=== PATIENT | male | born 1935 | race Caucasian/White ===

== ENCOUNTER 2018-02-20 02:37 | Emergency (ER) | payer MEDICARE ==
[2018-02-20] MEDS ORDERED: Ondansetron 4 MG/2 ML SDV IVPUSH ONE (03:29)
[2018-02-20] MEDS ORDERED: Morphine 4 MG/ML Syringe IVPUSH ONE (03:29)
[2018-02-20] MEDS ORDERED: Sodium Chloride 0.9% 1,000 ML IV SCH (03:30)
[2018-02-20 04:07] LABS: CHLORIDE,CL 101 mmol/L (98-107); SODIUM,NA 136 mmol/L (136-148)
[2018-02-20] MEDS ORDERED: Sodium Chloride 0.9% with KCl 1,000 ML IV SCH (04:30)
[2018-02-20] MEDS ORDERED: Metoclopramide 10 MG/2 ML SDV IV ONE (05:42)
--- NOTE | 2018-02-20 05:47 | EDM.PDOC ---
ED HPI GENERAL MEDICAL PROBLEM - General Chief Complaint: Abdominal Pain Stated Complaint: STOMACH PAINS Time Seen by Provider: 02/20/18 05:44 Source of Information: Reports: Patient - History of Present Illness INITIAL COMMENTS - FREE TEXT/NARRATIVE: HISTORY AND PHYSICAL: History of present illness: [Patient presents with abdominal pain 5 out of 10 diffuse nonfocal, he does have a tender ventral hernia which is been present for 25 years, is not readily reducible on exam abdomen is protuberant no fever nausea vomiting chills sweats no chest pain shortness breath headache dizziness or palpitation last bowel movement 3 days prior no urine symptoms ] Review of systems: As per history of present illness and below otherwise all systems reviewed and negative. Past medical history: As per history of present illness and as reviewed below otherwise noncontributory. Surgical history: As per history of present illness and as reviewed below otherwise noncontributory. Social history: No reported history of drug or alcohol abuse. Family history: As per history of present illness and as reviewed below otherwise noncontributory. Physical exam: HEENT: Atraumatic, normocephalic, pupils reactive, negative for conjunctival pallor or scleral icterus, mucous membranes moist, throat clear, neck supple, nontender, trachea midline. Lungs: Clear to auscultation, breath sounds equal bilaterally, chest nontender. Heart: S1S2, regular, negative for clicks, rubs, or JVD. Abdomen: Soft, protuberant multifocal tenderness. Negative for masses or hepatosplenomegaly. Negative for costovertebral tenderness. Pelvis: Stable nontender. Genitourinary: Deferred. Rectal: Deferred. Extremities: Atraumatic, negative for cords or calf pain. Neurovascular unremarkable. Neuro: Awake, alert, oriented. Cranial nerves II through XII unremarkable. Cerebellum unremarkable. Motor and sensory unremarkable throughout. Exam nonfocal. Diagnostics: [CBC CMP UA EKG Chest [address] abdomen pelvis with contrast ] Therapeutics: [Normal saline 1 25 mL per hour 40 mEq of potassium seeing 2 mg IV Zofran 8 mg IV Reglan 5 mg IV General surgery consult to Dr. Vasquez , she will be in to evaluate and disposition shortly Impression: [ abdominal pain, ventral hernia Rule out incarceration Hypokalemia] Definitive disposition and diagnosis as appropriate pending reevaluation and review of above. Bilateral Lower Pain Score (Numeric/FACES): 8 - Related Data Allergies Allergy/AdvReac Type Severity Reaction Status Date / Time Penicillins Allergy Rash Verified 02/20/18 03:04 Home Meds: Home Meds Allopurinol [Zyloprim] 100 mg PO DAILY 02/20/18 [History] Aspirin 81 mg PO DAILY 02/20/18 [History] Losartan [Cozaar] 50 mg PO DAILY 02/20/18 [History] Metoprolol Succinate [Toprol XL 50mg] 50 mg PO DAILY 02/20/18 [History] amLODIPine [Norvasc] 5 mg PO DAILY 02/20/18 [History] Past Medical History HEENT History: Reports: Hard of Hearing Cardiovascular History: Reports: Hypertension Respiratory History: Reports: None Gastrointestinal History: Reports: Chronic Constipation, Hemorrhoids Genitourinary History: Reports: None Musculoskeletal History: Reports: Gout Neurological History: Reports: None Psychiatric History: Reports: None Endocrine/Metabolic History: Reports: None Hematologic History: Reports: None Immunologic History: Reports: None Oncologic (Cancer) History: Reports: None Dermatologic History: Reports: None - Infectious Disease History Infectious Disease History: Reports: None - Past Surgical History Head Surgeries/Procedures: Reports: None HEENT Surgical History: Reports: Tonsillectomy GI Surgical History: Reports: Hernia, Abdominal Endocrine Surgical History: Reports: None Neurological Surgical History: Reports: None Oncologic Surgical History: Reports: None Social & Family History - Family History Family Medical History: Noncontributory - Tobacco Use Smoking Status *Q: Never Smoker Second Hand Smoke Exposure: No - Caffeine Use Caffeine Use: Reports: Coffee - Recreational Drug Use Recreational Drug Use: No ED ROS GENERAL - Review of Systems Review Of Systems: ROS reveals no pertinent complaints other than HPI. ED EXAM, GENERAL - Physical Exam Exam: See Below Course - Vital Signs Last Recorded V/S: Last Vital Signs Temp 98.9 F 02/20/18 06:31 Pulse 102 H 02/20/18 07:10 Resp 16 02/20/18 07:10 BP 128/74 02/20/18 07:10 Pulse Ox 95 02/20/18 07:10 - Orders/Labs/Meds Orders: Active Orders 24 hr Category Date Time Status EKG Documentation Completion [RC] STAT Care 02/20/18 02:54 Active Abdomen Pelvis w Cont [CT] Stat Exams 02/20/18 03:24 Taken Abdomen w Cont [CT] Stat Exams 02/20/18 02:54 Stop Req Chest 1V Frontal [CR] Stat Exams 02/20/18 02:54 Taken UA W/MICROSCOPIC [URIN] Stat Lab 02/20/18 03:13 Ordered Sodium Chloride 0.9% [Normal Saline] 1,000 ml Med 02/20/18 03:30 Active IV STAT Sodium Chloride 0.9% with KCl [Normal Saline with 40 Med 02/20/18 04:30 Active mEq KCl] 1,000 ml IV ASDIRECTED Medication Orders Sodium Chloride (Normal Saline) 1,000 mls @ 125 mls/hr IV STAT MYLA Last Admin: 02/20/18 03:33 Dose: 125 mls/hr Potassium Chloride/Sodium Chloride (Normal Saline With 40 Meq Kcl) 1,000 mls @ 250 mls/hr IV ASDIRECTED MYLA Last Admin: 02/20/18 04:47 Dose: 250 mls/hr Labs: Laboratory Tests 02/20/18 02/20/18 02/20/18 Range/Units 03:13 03:13 03:13 WBC 12.07 H (4.0-11.0) K/uL RBC 5.13 (4.50-5.90) M/uL Hgb 17.7 H (13.0-17.0) g/dL Hct 48.5 (38.0-50.0) % MCV 94.5 (80.0-98.0) fL MCH 34.5 H (27.0-32.0) pg MCHC 36.5 (31.0-37.0) g/dL RDW Std Deviation 45.8 (28.0-62.0) fl RDW Coeff of Stacie 13 (11.0-15.0) % Plt Count 190 (150-400) K/uL MPV 9.80 (7.40-12.00) fL Neut % (Auto) 78.6 (48.0-80.0) % Lymph % (Auto) 11.1 L (16.0-40.0) % [place] % (Auto) 9.9 (0.0-15.0) % Eos % (Auto) 0.2 (0.0-7.0) % Baso % (Auto) 0.2 (0.0-1.5) % Neut # (Auto) 9.5 H (1.4-5.7) K/uL Lymph # (Auto) 1.3 (0.6-2.4) K/uL [place] # (Auto) 1.2 H (0.0-0.8) K/uL Eos # (Auto) 0.0 (0.0-0.7) K/uL Baso # (Auto) 0.0 (0.0-0.1) K/uL Nucleated RBC % 0.0 /100WBC Nucleated RBCs # 0 K/uL Sodium 136 (136-148) mmol/L Potassium 2.9 L (3.5-5.1) mmol/L Chloride 101 (98-107) mmol/L Carbon Dioxide 26.0 (21.0-32.0) mmol/L BUN 14 (7.0-18.0) mg/dL Creatinine 1.1 (0.8-1.3) mg/dL Est Cr Clr Drug Dosing 49.24 mL/min Estimated GFR (MDRD) > 60.0 ml/min Glucose 152 H (74-106) mg/dL Calcium 9.8 (8.5-10.1) mg/dL Total Bilirubin 1.3 H (0.2-1.0) mg/dL AST 14 L (15-37) IU/L ALT 12 L (14-63) IU/L Alkaline Phosphatase 91 (46-116) U/L Troponin I < 0.050 (0.000-0.056) ng/mL Total Protein 7.9 (6.4-8.2) g/dL Albumin 3.8 (3.4-5.0) g/dL Globulin 4.1 H (2.0-3.5) g/dL Albumin/Globulin Ratio 0.9 L (1.3-2.8) Lipase 93 (73-393) U/L Urine Color YELLOW Urine Appearance CLEAR Urine pH 5.5 (5.0-8.0) Ur Specific [place] 1.020 (1.001-1.035) Urine Protein TRACE (NEGATIVE) mg/dL Urine Glucose (UA) NEGATIVE (NEGATIVE) mg/dL Urine Ketones 15 H (NEGATIVE) mg/dL Urine Occult Blood NEGATIVE (NEGATIVE) Urine Nitrite NEGATIVE (NEGATIVE) Urine Bilirubin SMALL H (NEGATIVE) Urine Urobilinogen 0.2 (<2.0) EU/dL Ur Leukocyte Esterase NEGATIVE (NEGATIVE) Urine RBC NONE SEEN (0-2/HPF) Urine WBC 0-1 (0-5/HPF) Ur Epithelial Cells NOT SEEN (NONE-FEW) Urine Bacteria RARE (NEGATIVE) Urinalysis Comment Meds: Medications Generic Name Dose Route Start Last Admin Trade Name Freq PRN Reason Stop Dose Admin Sodium Chloride 1,000 mls @ 125 mls/hr 02/20/18 03:30 02/20/18 03:33 Normal Saline IV 125 mls/hr STAT MYLA Administration Potassium Chloride/Sodium Chloride 1,000 mls @ 250 mls/hr 02/20/18 04:30 04:47 Normal Saline With 40 Meq Kcl IV 250 mls/hr ASDIRECTED MYLA Administration Discontinued Medications Generic Name Dose Route Start Last Admin Trade Name Freq PRN Reason Stop Dose Admin Metoclopramide HCl 5 mg 02/20/18 05:42 02/20/18 05:51 Reglan IV 02/20/18 05:43 5 mg ONETIME ONE Administration Morphine Sulfate 2 mg 02/20/18 03:29 02/20/18 03:36 Morphine IVPUSH 02/20/18 03:30 2 mg ONETIME ONE Administration Ondansetron HCl 8 mg 02/20/18 03:29 02/20/18 03:36 Zofran IVPUSH 02/20/18 03:30 8 mg ONETIME ONE Administration Departure - Departure Time of Disposition: 07:15 Disposition: DC/Tfer to Other 70 Condition: Poor Clinical Impression: Abdominal pain, Obstruction of colon, Colonic mass - Discharge Information Referrals: Santhosh Mendoza MD [Primary Care Provider] - Forms: ED Department Discharge - My Orders Last 24 Hours: My Active Orders 02/20/18 02:54 EKG Documentation Completion [RC] STAT Abdomen w Cont [CT] Stat Chest 1V Frontal [CR] Stat 02/20/18 03:13 UA W/MICROSCOPIC [URIN] Stat 02/20/18 03:24 Abdomen Pelvis w Cont [CT] Stat 02/20/18 03:30 Sodium Chloride 0.9% [Normal Saline] 1,000 ml IV STAT 02/20/18 04:30 Sodium Chloride 0.9% with KCl [Normal Saline with 40 mEq KCl] 1,000 ml IV ASDIRECTED - Assessment/Plan Last 24 Hours: My Active Orders 02/20/18 02:54 EKG Documentation Completion [RC] STAT Abdomen w Cont [CT] Stat Chest 1V Frontal [CR] Stat 02/20/18 03:13 UA W/MICROSCOPIC [URIN] Stat 02/20/18 03:24 Abdomen Pelvis w Cont [CT] Stat 02/20/18 03:30 Sodium Chloride 0.9% [Normal Saline] 1,000 ml IV STAT 02/20/18 04:30 Sodium Chloride 0.9% with KCl [Normal Saline with 40 mEq KCl] 1,000 ml IV ASDIRECTED
--- NOTE | 2018-02-20 06:52 | PCM.CONS ---
H&P History of Present Illness - General Date of Service: 02/20/18 Source of Information: Patient History Limitations: Reports: No Limitations - History of Present Illness Initial Comments - Free Text/Narative: Patient is an 82 year old male who presents with 3 days of generalized abdominal pain and increasing abdominal distension. He states that he has not passed gas or had a BM in that time. He has an umbilical hernia that has been present for 25 years. This has never bothered him. Over the last 3 days it has grown in size as he became more distended. The pain was not improving at home and so he presented to the ED. He denies any tenderness at his umbilicus. He denies bulges in his groin. He denies fever, chills nausea or vomiting. He denies SOB or chest pain. He has never had an abdominal surgery. He states that he has had intermittent episodes of constipation but never like this. He denies bloody or black appearing stool. He denies any family history of colon cancer. His last colonoscopy was in his 60s. He believes it was normal. He is a former smoker for ~10-15 years but he quit 30 years ago. He no longer drinks. He sees his primary care doctor on a regular basis. He has not had a FOBT recently. Bilateral Lower Pain Score (Numeric/FACES): 8 - Related Data Allergies/Adverse Reactions: Allergies Allergy/AdvReac Type Severity Reaction Status Date / Time Penicillins Allergy Rash Verified 02/20/18 03:04 Home Medications: Home Meds Allopurinol [Zyloprim] 100 mg PO DAILY 02/20/18 [History] Aspirin 81 mg PO DAILY 02/20/18 [History] Losartan [Cozaar] 50 mg PO DAILY 02/20/18 [History] Metoprolol Succinate [Toprol XL 50mg] 50 mg PO DAILY 02/20/18 [History] amLODIPine [Norvasc] 5 mg PO DAILY 02/20/18 [History] Past Medical History HEENT History: Reports: Hard of Hearing Cardiovascular History: Reports: Hypertension Respiratory History: Reports: None Gastrointestinal History: Reports: Chronic Constipation, Hemorrhoids Genitourinary History: Reports: None Musculoskeletal History: Reports: Gout Neurological History: Reports: None Psychiatric History: Reports: None Endocrine/Metabolic History: Reports: None Hematologic History: Reports: None Immunologic History: Reports: None Oncologic (Cancer) History: Reports: None Dermatologic History: Reports: None - Infectious Disease History Infectious Disease History: Reports: None - Past Surgical History Head Surgeries/Procedures: Reports: None HEENT Surgical History: Reports: Tonsillectomy GI Surgical History: Reports: Hernia, Abdominal Endocrine Surgical History: Reports: None Neurological Surgical History: Reports: None Oncologic Surgical History: Reports: None Social & Family History - Family History Family Medical History: Noncontributory - Tobacco Use Smoking Status *Q: Never Smoker Second Hand Smoke Exposure: No - Caffeine Use Caffeine Use: Reports: Coffee - Recreational Drug Use Recreational Drug Use: No H&P Review of Systems - Review of Systems: Review Of Systems: ROS reveals no pertinent complaints other than HPI. Exam - Exam Exam: See Below - Vital Signs Vital Signs: Last Vital Signs Temp 37.2 C 02/20/18 06:31 Pulse 102 H 02/20/18 06:31 Resp 16 02/20/18 06:31 BP 135/78 02/20/18 06:31 Pulse Ox 95 02/20/18 06:31 Weight: 82.2 kg - Exam General: Alert, Oriented, Cooperative HEENT: Conjunctiva Clear, Posterior Pharynx Clear Neck: Supple, Trachea Midline. No: Lymphadenopathy Lungs: Clear to Auscultation, Normal Respiratory Effort Cardiovascular: Regular Rate, Regular Rhythm GI/Abdominal Exam: Soft, Non-Tender, Distended, Hernia (Large umbilical hernia. Redened skin overlying. Non tender. Non-reducible. No incarcerated inguinal hernias. ). No: Guarding, Rigid, Rebound (Male) Exam: Normal Inspection. No: Inguinal Lymphadenopathy Back Exam: Normal Inspection Extremities: Normal Inspection, Normal Range of Motion, Non-Tender, No Pedal Edema, Normal Capillary Refill Skin: Warm, Dry, Intact Neuro Extensive - Mental Status: Alert, Oriented x3, Normal Mood/Affect, Normal Cognition, Memory Intact - Patient Data Lab Results Last 24 hrs: Laboratory Results - last 24 hr 02/20/18 02/20/18 02/20/18 Range/Units 03:13 03:13 03:13 WBC 12.07 H (4.0-11.0) K/uL RBC 5.13 (4.50-5.90) M/uL Hgb 17.7 H (13.0-17.0) g/dL Hct 48.5 (38.0-50.0) % MCV 94.5 (80.0-98.0) fL MCH 34.5 H (27.0-32.0) pg MCHC 36.5 (31.0-37.0) g/dL RDW Std Deviation 45.8 (28.0-62.0) fl RDW Coeff of Stacie 13 (11.0-15.0) % Plt Count 190 (150-400) K/uL MPV 9.80 (7.40-12.00) fL Neut % (Auto) 78.6 (48.0-80.0) % Lymph % (Auto) 11.1 L (16.0-40.0) % [place] % (Auto) 9.9 (0.0-15.0) % Eos % (Auto) 0.2 (0.0-7.0) % Baso % (Auto) 0.2 (0.0-1.5) % Neut # (Auto) 9.5 H (1.4-5.7) K/uL Lymph # (Auto) 1.3 (0.6-2.4) K/uL [place] # (Auto) 1.2 H (0.0-0.8) K/uL Eos # (Auto) 0.0 (0.0-0.7) K/uL Baso # (Auto) 0.0 (0.0-0.1) K/uL Nucleated RBC % 0.0 /100WBC Nucleated RBCs # 0 K/uL Sodium 136 (136-148) mmol/L Potassium 2.9 L (3.5-5.1) mmol/L Chloride 101 (98-107) mmol/L Carbon Dioxide 26.0 (21.0-32.0) mmol/L BUN 14 (7.0-18.0) mg/dL Creatinine 1.1 (0.8-1.3) mg/dL Est Cr Clr Drug Dosing 49.24 mL/min Estimated GFR (MDRD) > 60.0 ml/min Glucose 152 H (74-106) mg/dL Calcium 9.8 (8.5-10.1) mg/dL Total Bilirubin 1.3 H (0.2-1.0) mg/dL AST 14 L (15-37) IU/L ALT 12 L (14-63) IU/L Alkaline Phosphatase 91 (46-116) U/L Troponin I < 0.050 (0.000-0.056) ng/mL Total Protein 7.9 (6.4-8.2) g/dL Albumin 3.8 (3.4-5.0) g/dL Globulin 4.1 H (2.0-3.5) g/dL Albumin/Globulin Ratio 0.9 L (1.3-2.8) Lipase 93 (73-393) U/L Urine Color YELLOW Urine Appearance CLEAR Urine pH 5.5 (5.0-8.0) Ur Specific [place] 1.020 (1.001-1.035) Urine Protein TRACE (NEGATIVE) mg/dL Urine Glucose (UA) NEGATIVE (NEGATIVE) mg/dL Urine Ketones 15 H (NEGATIVE) mg/dL Urine Occult Blood NEGATIVE (NEGATIVE) Urine Nitrite NEGATIVE (NEGATIVE) Urine Bilirubin SMALL H (NEGATIVE) Urine Urobilinogen 0.2 (<2.0) EU/dL Ur Leukocyte Esterase NEGATIVE (NEGATIVE) Urine RBC NONE SEEN (0-2/HPF) Urine WBC 0-1 (0-5/HPF) Ur Epithelial Cells NOT SEEN (NONE-FEW) Urine Bacteria RARE (NEGATIVE) Urinalysis Comment Result Diagrams: 02/20/18 03:13 02/20/18 03:13 Consult PN Assessment/Plan (1) Obstruction of colon SNOMED Code(s): 07536809 Code(s): K56.609 - UNSP INTESTNL OBST, UNSP TO PARTIAL VERSUS COMPLETE OBST Current Visit: Yes (2) Colonic mass SNOMED Code(s): 460650821 Code(s): K63.9 - DISEASE OF INTESTINE, UNSPECIFIED Current Visit: Yes Problem List Initiated/Reviewed/Updated: Yes Plan: Patient's CT scan showed dilated colon and omental fat incarcerated in an umbilical hernia. The first read of the CT read as "gaseous distended colon with moderate amount of stool and no transition point. Ventral abdominal fat containing hernia with induration of the herniated fat and small amount of free fluid within the hernia defect." I reviewed the images and noted an apple core lesion in the sigmoid colon. I called the off-site radiology group and the on- call radiologist reviewed the images. He agreed that there was an obstructing mass. They will be addending their note. We did not notice any liver lesions and his CXR on admission appeared clear. He does have a mildly elevated bilirubin (1.3), but other LFTs are normal. His CT shows a left inguinal hernia as well but it was reducible. Given that this is obstructing he will need surgery. I anticipate a stay longer than 3 days and with his age he may need ICU care as well. Will transfer to [place] for a higher level of care.
[2018-02-20] MEDS ORDERED: Morphine 4 MG/ML Syringe IM ONE (08:15)
--- NOTE | 2018-02-20 15:22 | CR ---
EXAM DATE: 02/20/18 PATIENT'S AGE: 82 Patient: EMELY FERREIRA Facility: [place], [place] Site . Site : 1935 Study: XRay Chest [id number]/13/2018 4:50:35 AM Ordering Physician: Doctor Monroy Final Report: INDICATION: none provided TECHNIQUE: Chest 1 view COMPARISON: None FINDINGS: Cardiovascular and mediastinum: Heart size and vasculature are normal in caliber and appearance. Mediastinum is within normal limits. Lungs and pleural space: No focal consolidation. No sign of pleural effusion. No pneumothorax. Bones and soft tissues: No significant findings. IMPRESSION: No acute cardiopulmonary disease Dictated by Jose Riley MD @ 02/20/2018 5:09:26 AM Dictated by: Jose Riley MD @ 02/20/2018 05:09:47 (Electronic Signature) Report Signed by Proxy. GUY
--- NOTE | 2018-02-20 15:32 | CT ---
EXAM DATE: 02/20/18 PATIENT'S AGE: 82 Patient: EMELY FERREIRA Facility: [place], [place] Site . Site : 1935 Study: CT Abdomen/Pelvis [id number]/13/2018 4:52:13 AM Ordering Physician: Kely Black Final Report: INDICATION: BLOATED X 3 DAYSHERNIA DIAGNOSED X 30 YEARS AGO TECHNIQUE: CT abdomen and pelvis acquired with IV contrast. COMPARISON: None FINDINGS: Lower chest: Scarring/atelectasis Liver: Unremarkable. Spleen: Unremarkable. Pancreas: Unremarkable. Gallbladder and bile ducts: Unremarkable. Kidneys: Bilateral renal cysts. Adrenal glands: Unremarkable. GI tract: Gaseous distended colon. Moderate amount of stool. No transition point. . Appendix is normal. Vascular structures: Atherosclerotic disease. No sign of aneurysm. Lymph nodes: Unremarkable. Miscellaneous: Ventral abdominal fat containing hernia with induration of the herniated fat and small amount of free fluid within the hernial defect. Left inguinal hernia. No free air or significant free fluid. Pelvic Organs: Markedly enlarged prostate Bones: Degenerative changes most pronounced at the L2-3 level. IMPRESSION: 1. Gaseous distended colon with moderate amount of stool. If there is recent antibiotic use considered infectious etiology such as C difficile. 2. Ventral abdominal fat containing hernia with induration of the herniated fat and small amount of free fluid within the hernial defect. Please correlate for the possibility of incarceration. 3. Markedly enlarged prostate. Please correlate with PSA levels. Dictated by Jose Riley MD @ 02/20/2018 5:14:23 AM Please note that all CT scans at this facility use dose modulation, iterative reconstruction, and/or weight-based dosing when appropriate to reduce radiation dose to as low as reasonably achievable. Dictated by: Jose Riley MD @ 02/20/2018 05:23:53 ----- ADDENDUM ----- ADDENDUM: I reviewed this case with Dr. Dede Yang, surgeon at [place], [place]. On 02/20/2018 at 6:20 a.m. 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 This has an apple core appearance on the coronal reformations and would account for the colonic dilatation and abdominal pain. The omental fat within the midline periumbilical hernia does not appear to be incarcerated. There is no evidence of free intraperitoneal air. There are no suspicious liver metastases or evidence of malignant appearing lymphadenopathy within the abdomen and pelvis. Edison Fenton M.D. Radiology Dictated by Edison Fenton MD @ Feb 20 2018 9:35AM (Electronic Signature) Report Signed by Proxy. GUY
== END 2018-02-20 08:40 | disposition other institution (70) ==
LOC: MW.ED 02:37
DX: K43.6 Other and unspecified ventral hernia with obstruction, without gangrene (principal); R19.09 Other intra-abdominal and pelvic swelling, mass and lump; E87.6 Hypokalemia; I10 Essential (primary) hypertension; Z88.0 Allergy status to penicillin; Z79.899 Other long term (current) drug therapy; Z79.82 Long term (current) use of aspirin
CPT/HCPCS: 71045; 74177; 80053; 81001; 83690; 84484; 85025; 93005; 96361; 96365; 96366; 96375; 96376; 99285; J2270; J2405; J2765; J3480; J7040